=== PATIENT | male | born 2000 | race Caucasian/White ===

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

== ENCOUNTER → 2021-03-21 08:36 | Outpatient (CLI) | payer OTHER, SELFPAY | PROVIDERS: PCP Internal Medicine Adolescent Medicine; Visit Provider Internal Medicine Adolescent Medicine | DX: R00.2 Palpitations (principal) | CPT/HCPCS: 93225; 93226 ==

== ENCOUNTER 2023-07-23 17:09 | Emergency (ER) | payer BC, SELFPAY ==
[2023-07-23 17:20] VITALS: BP 160/114; PULSE 90; RESP 20; TEMP 36.8; O2SAT 97; BMI 42.5
--- NOTE | 2023-07-23 17:23 | XR_ITS ---
PROCEDURE INFORMATION: Exam: XR Left Tibia and Fibula Exam date and time: 07/23/2023 5:23 PM Age: 23 years old Clinical indication: Pain; Swelling, leg or foot; Lower leg; Left; Additional info: Fall TECHNIQUE: Imaging protocol: Radiologic exam of the left tibia and fibula. Views: 2 views. COMPARISON: CR Ankle L 07/23/2023 5:22 PM FINDINGS: Bones/joints: Osseous structures are intact. No fracture or malalignment. Visualized joint surfaces are preserved. Soft tissues: Unremarkable. IMPRESSION: Negative exam. No acute bony abnormalities.
--- NOTE | 2023-07-23 17:23 | XR_ITS ---
PROCEDURE INFORMATION: Exam: XR Left Ankle Exam date and time: 07/23/2023 5:22 PM Age: 23 years old Clinical indication: Pain; Swelling, leg or foot; Ankle; Left; Additional info: Fall TECHNIQUE: Imaging protocol: Radiologic exam of the left ankle. Views: 3 or more views. COMPARISON: No relevant prior studies available. FINDINGS: Bones/joints: Osseous structures are intact. No fracture or malalignment. Visualized joint surfaces are preserved. Soft tissues: Unremarkable. IMPRESSION: Negative exam. No acute bony abnormalities.
--- NOTE | 2023-07-23 17:23 | XR_ITS ---
PROCEDURE INFORMATION: Exam: XR Left Foot Exam date and time: 07/23/2023 5:30 PM Age: 23 years old Clinical indication: Pain; Swelling, leg or foot; Left; Additional info: Fall TECHNIQUE: Imaging protocol: Radiologic exam of the left foot. Views: 3 or more views. COMPARISON: CR XR TIBIA FIBULA LT 2V 07/23/2023 5:23 PM FINDINGS: Bones/joints: There is contour deformity involving the dorsal aspect of the navicular bone that is likely longstanding and developmental in nature.. No fracture, dislocation or malalignment. Joint surfaces are perserved. Soft tissues: Normal. IMPRESSION: No acute bony abnormalities.
--- NOTE | 2023-07-23 17:29 | EXP.UTC ---
Discharge Plan Disposition Patient Disposition: Home, Self-Care Condition: Good Prescriptions Prescriptions: New ibuprofen [IBU] 800 mg tablet 800 mg PO Q8HP PRN (Reason: Moderate Pain) Qty: 30 0RF Referrals Follow up/Referrals: Provider,Referral, MD [Primary Care Provider] - See instructions Keli Medina DPM [Staff Physician] - See instructions Activity Restrictions/Add. Instructions Additional Instructions/Restrictions: Rest the extremity, apply ice for 15 minutes as tolerated three or four times per day, Wear the freddy wrap for compression, Elevate the extremity as tolerated while you are resting. Take ibuprofen for pain. I sent in a prescription to your pharmacy. Follow up with Dr. Medina (podiatry). I put in a referral but you need to call her office and schedule an appointment. Follow up with your regular doctor. GO TO THE ER FOR ANY WORSENING SYMPTOMS Clinical Impressions Clinical Impression: Left ankle sprain, Sprain of left foot Instructions Patient Instructions: Ankle Sprain, DI for Ankle Sprain, DI for Foot Sprain, How to Apply an Elastic Wrap on Ankle Discharge ED Provider: Armando Golden [facility] General Stated complaint: AO07/21 fall Lt ankle inj Time Seen by Provider: 07/23/23 17:29 History of Present Illness Provider Complaint: He states that he twisted his left foot and ankle on 07/21. Since then he has had left ankle and foot pain, swelling and bruising. Related Data Previous Rx's Medication Instructions Recorded ibuprofen 800 mg tablet (IBU) 800 mg PO Q8HP PRN Moderate Pain 07/23/23 #30 tabs Allergies Allergy/AdvReac Type Severity Reaction Status Date / Time ephedrine Allergy Verified 09/03/22 11:18 [facility] Disclaimer: The information contained in this section may have been updated after the patient was seen, as this information can be updated by other users. Medical History (Updated 07/23/23 @ 18:21 by Armando Golden APRN) Vitamin D deficiency (~10/11/17) Social History (Updated 09/03/22 @ 11:19 by Mary No MA) Smoking Status: Never smoker alcohol intake: never substance use type: denies use current occupational status: student Travel in the last 8 weeks: Inside the [place] household members: family housing: house ROS Obtained: Yes All systems reviewed & no additional complaints except as documented Constitutional Constitutional: Denies chills and Denies fever(s) Eyes Eyes: Denies eye discharge ENT Ears, Nose, Mouth, and Throat: Denies dizziness, Denies otalgia and Denies sore throat Cardiovascular Cardiovascular: Denies chest pain Respiratory Respiratory: Denies shortness of breath, Denies chest congestion, Denies cough, Denies stridor and Denies wheezing Gastrointestinal Gastrointestingal: Denies nausea or vomiting Musculoskeletal Musculoskeletal: Reports system reviewed and no additional complaints, except as documented and Denies arthralgias Integumentary/Breasts Skin/Breast: Denies rash Neurologic Neurologic: Denies dizziness and Denies paresthesias Allergic/Immunologic Allergic/Immunologic: Denies wheezing Physical Exam General General appearance: alert and in no apparent distress Head Head exam: atraumatic, normocephalic and normal inspection Eye Eye exam: Present normal appearance, PERRL and EOMI ENT ENT exam: Present normal exam, normal oropharynx, mucous membranes moist, TM's normal bilaterally and normal external ear exam Neck Neck exam: Present normal inspection, full ROM and trachea midline; Absent meningismus or lymphadenopathy Chest Chest inspection: Present normal inspection and symmetric chest wall rise; Absent tenderness Respiratory Respiratory exam: Present normal lung sounds bilaterally; Absent respiratory distress Cardiovascular Cardiovascular exam: Present regular rate and normal rhythm; Absent JVD Abdominal Exam Abdominal exam: Present soft and normal bowel sounds; Absent dis
[2023-07-23 18:37] VITALS: BP 160/114; PULSE 90; RESP 20; TEMP 36.8; O2SAT 97
== END 2023-07-23 18:41 | disposition home or self-care (01) ==
PROVIDERS: Emergency Provider Nurse Practitioner Family
DX: S93.402A Sprain of unspecified ligament of left ankle, initial encounter (principal); S93.602A Unspecified sprain of left foot, initial encounter; M25.572 Pain in left ankle and joints of left foot; X50.1XXA Overexertion from prolonged static or awkward postures, initial encounter
CPT/HCPCS: 73590; 73610; 73630; 99204; 99212; G0463

== ENCOUNTER 2023-07-25 16:12 | Outpatient (RCR) | payer BC, SELFPAY | END 2023-07-25 17:00 | disposition home or self-care (01) | LOC: PT 16:12 | PROVIDERS: Visit Provider Podiatrist | DX: M25.572 Pain in left ankle and joints of left foot (principal); S86.312A Strain of muscle(s) and tendon(s) of peroneal muscle group at lower leg level, left leg, initial encounter | CPT/HCPCS: 97760 ==

== ENCOUNTER 2025-06-06 13:20 | Emergency (ER) | payer BC, SELFPAY ==
[2025-06-06 13:24] VITALS: BP 158/88; PULSE 99; RESP 18; TEMP 36.7; O2SAT 100; BMI 38.9
--- OUTSIDE RECORDS SUMMARY | 2025-06-06 13:31 | XMS_ITS | Clinical Summary ---
Author Organization Healthcare Address [address] [place] [address] Care Team Providers Care Configuration Analyst Name Role Phone Armando Adams MD Primary Care Provider [phone] Family History Medical History Relation Name Comments Bicuspid aortic valve Father Conversions - Other Father SNADY on C PAP Relation Name Status Comments Father Social History Tobacco Use Types Packs/Day Years Used Date Smoking Tobacco: Never Sex and Gender Information Value Date Recorded Sex Assigned at Not on file Legal Sex Male 7:52 PM EDT Gender Identity Not on file Sexual Orientation Not on file Last Filed Vital Signs Vital Sign Reading Time Taken Comments Blood Pressure 148/82 06/06/2019 10:49 AM EDT Pulse 80 06/06/2019 10:49 AM EDT Temperature - - Respiratory Rate - - Oxygen Saturation - - Inhaled Oxygen Concentration - - Weight 148 kg (325 lb 13.4 oz) 06/06/2019 10:49 AM EDT Height 190.5 cm (6' 3 ) 06/06/2019 10:49 AM EDT Body Mass Index 40.73 06/06/2019 10:49 AM EDT Plan of Treatment Not on file Care Teams Configuration Analyst Relationship Specialty Start Date End Date Armando Adams MD [address] [place] [address] PCP - General 01/16/21
--- OUTSIDE RECORDS SUMMARY | 2025-06-06 13:31 | XMS_ITS | Clinical Summary ---
Author Organization [facility] Address [address] [place] [id number] Care Team Providers Care Biology Tutor Name Role Phone Chicho Mercedes M.D. Primary Care Provider [phone] 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 Family History Medical History Relation Name Comments Childhood Heart Disease Father tri valve is a bi High Cholesterol Mother Coronary Artery Disease Paternal Grandfather Diabetes Mellitus Paternal Grandfather High Cholesterol Paternal Grandfather Arrhythmia Neg Hx Childhood heart surgery Neg Hx Heart Attack Neg Hx Hypertension Neg Hx ICD (Defibrillator) Neg Hx Pacemaker Neg Hx Sudden Neg Hx Syncope Neg Hx Relation Name Status Comments Brother 1 Alive Brother 2 Alive Father Alive Mother Alive Paternal Grandfather Social History Tobacco Use Types Packs/Day Years Used Date Smoking Tobacco: Never Smokeless Tobacco: Never Alcohol Use Standard Drinks/Week Comments No 0 (1 standard drink = 0.6 oz pur e alcohol) Intimate Partner Violence Answer Date R ecorded If you are in a relationship , do you feel safe in that relationship? Yes 07/12/2016 Safe in relationship? (18 and older) Not on file 07/12/2016 Safety and Environment Answer Date Mynor rded Do you have any concerns of physical abuse, sexual abuse, or neglect of your child? No 07/12/2016 Adult hurting you or family (11-18) Not on file 07/12/2016 Someone touched you in a sexual way? (11-18) Not on file 07/12/2016 Someone hurting you or family (18 and older) Not on file 07/12/2016 Historical abuse worry Not on file 6 If you have firearms in the home, are they all in locked storage AND unloaded? Not on file 07/12/2016 Sex and Gender Information Value Date Recorded Sex Assigned at Not on file Legal Sex Male 1:00 PM EDT Gender Identity Not on file Sexual Orientation Not on file Last Filed Vital Signs Vital Sign Reading Time Taken Comments Blood Pressure 118/76 07/12/2016 1:38 PM EST Pulse 68 07/12/2016 1:38 PM EST Temperature 37.1 C (98.8 F) 06/26/2015 6:00 PM EDT Respiratory Rate 16 07/12/2016 1:38 PM EST Oxygen Saturation 99% 06/26/2015 7:45 PM EDT Inhaled Oxygen Concentration - - Weight 123.6 kg (272 lb 7.8 oz) 07/12/2016 1:38 PM EST Height 187.5 cm (6' 1.82 ) 07/12/2016 1:38 PM ES T Body Mass Index 35.16 07/12/2016 1:38 PM EST Plan of Treatment Health Maintenance Due Date Last Done Comments MMR IMMUNIZATION (1 of 1 - S tandard series) 2002 DTAP/Tdap/Td IMMUNIZATION (1 - Tdap) 2008 VARICELLA IMMUNIZATION (1 of 2 - 13+ 2-dose series) 2014 HPV IMMUNIZATION (1 - Male 3 -dose series) 2016 HEPATITIS B IMMUNIZATION (1 of 3 - 19+ 3-dose series) 2020 AMB SEASONAL FLU VACCINE (#1) 05/06/2025 COVID-19 Vaccine (1 - 2023-2 5 season) 2025 HIB IMMUNIZATION Aged Out No longer e ligible based on patient's age to complete this topic IPV IMMUNIZATION Aged Out No longer e ligible based on patient's age to complete this topic MCV4 IMMUNIZATION Aged Out No longer eligible based on patient's age to complete this topic MENINGOCOCCAL B VACCINE Aged Out No l onger eligible based on patient's age to complete this topic PNEUMOCOCCAL IMMUNIZATION Aged Out No longer eligible based on patient's age to complete this topic Respiratory Syncytial Virus (RSV) <20mo Aged Out No longer eligible b ased on patient's age to complete this topic Insurance [facility] Care Teams Biology Tutor Relationship Specialty Start Date End Date Chicho Mercedes M.D. [address] [place] [id number] PCP - General External Pediatrics 05/20/15
--- NOTE | 2025-06-06 14:13 | HMH.EDGENADL ---
Discharge Plan Disposition Patient Disposition: Home, Self-Care Condition: Good Prescriptions Prescriptions: No Action azithromycin [Zithromax Z-Doyle] 250 mg tablet See Rx Instructions PO .COMPLEX Qty: 6 0RF Rx Instructions: For 250 mg dose pack: take 500 mg today (day 1), then 250 mg for 4 days (days 2-5) PO methylprednisolone 4 mg tablets,dose pack See Rx Instructions PO PER PKG DIR Qty: 21 0RF Rx Instructions: PO PER PKG DIR guaifenesin 600 mg tablet extended release 12hr 600 mg PO BID Qty: 14 0RF Referrals Follow up/Referrals: Provider,Referral, MD [Primary Care Provider, Medical] - See instructions Activity Restrictions/Add. Instructions Additional Instructions/Restrictions: Change your dressings daily. Use the bacitracin daily to prevent infection. Do not submerge your stitches underneath water. It is okay to shower and wash with warm soap and water. I want you to return in 7 to 10 days to have the stitches removed. This can be done in the ER, at a primary care doctor office, or at an urgent care. If you develop pus draining from the wound or streaking redness please return to the emergency department. Clinical Impressions Clinical Impression: Laceration, Avulsion of skin Instructions Patient Instructions: DI for Laceration Repair Print Language Print Language: Hungarian Discharge ED Provider: Andrei Ladd Adult HPI <Keya Kevin (ED), [employer] - Last Filed: 06/06/25 14:14> General Chief complaint: Wound/Laceration Stated complaint: AO 1300 laceration to thumb left hand Time Seen by Provider: 06/06/25 14:04 Mode of Arrival: Ambulatory Source of Information: Patient Description of Symptoms (Recalled from ER Triage Doc. by RN): patient presents to the ED after smaching his finger with a hammer. tara stated he has not had any recent tetanus. Related Data Previous Rx's ?Medication ?Instructions ?Recorded azithromycin 250 mg tablet See Rx Instructions PO .COMPLEX #6 03/16/24 (Zithromax Z-Doyle) tabs guaifenesin 600 mg tablet, 600 mg PO BID #14 tabs 03/16/24 extended release 12 hr methylprednisolone 4 mg tablets in See Rx Instructions PO PER PKG DIR 03/16/24 a dose pack #21 tabs Allergies Allergy/AdvReac Type Severity Reaction Status Date / Time ephedrine Allergy Verified 03/16/24 11:05 <Andrei Ladd DO - Last Filed: 06/06/25 16:47> History of Present Illness HPI narrative: This is a 25-year-old male patient who is presenting to the emergency department today for evaluation of a left thumb laceration. Patient states that he was resting his thumb against a piece of metal while hammering a nail. He accidentally hammered his thumb into the piece of metal. He suffered a laceration in his head pain in the thumb since that time. He notes some difficulty with flexion of the thumb secondary to pain. He has not had any numbness or tingling [facility] <Keya Kevin (ED), [employer] - Last Filed: 06/06/25 14:14> [facility] Disclaimer: The information contained in this section may have been updated after the patient was seen, as this information can be updated by other users. Medical History Polyuria Viral wart on finger Mesenteric panniculitis Strain of left peroneal muscle or tendon Sprain of deltoid ligament of left ankle Left ankle injury Obesity, Class II, BMI 35-39.9 Vitamin D deficiency (~10/11/17) Surgical History No significant past surgical history Family History Other No significant family history Social History Smoking Status: Never smoker alcohol intake: never substance use type: denies use current occupational status: student Travel in the last 8 weeks?: Inside the [facility] ([place]) household members: family housing: house Have you lived/traveled outside US in past 30 days?: No Contact w/someone who lives/traveled outside US past 30 days?: No Exposure to someone with infectious disease in past 14 days?: No Do you have a fever (greater than 100.4 F or 38 C)?: No Have you tested positive for COVID-19?: No Exposed to someone with COVID-19 in past 14 days?: No Do you have a sore throat?: No Do you have a cough?: No Do you have any weakness?: No Do you have any diarrhea?: No Are you experiencing any unusual bleeding?: No Do you have any muscle aches/pain?: No Do you have any abdominal pain?: No Are you experiencing loss of taste or smell?: No Other Medical History Have you received the Flu Vaccine for this season: No Have you received the Pneumonia Vaccine: No <Andrei Ladd DO - Last Filed: 06/06/25 16:47> ROS Obtained: Yes Systems reviewed as appropriate & no additional complaints except as documented Physical Exam <Andrei Ladd DO - Last Filed: 06/06/25 16:47> General General appearance: other (See MDM) Respiratory Respiratory exam: Present other (See MDM) Cardiovascular Cardiovascular exam: Present other (See MDM) Neurological Exam Neurological exam: Present other (See MDM) Medical Decision Making <Keya Kevin (ED), [employer] - Last Filed: 06/06/25 14:14> Medical Records Screening: Per USPSTF and CDC recommendations, given the prevalence of disease in our region, it is our hospital?s policy to screen for HIV and viral Hepatitis for all patients aged 18 and over and those with ongoing risk factors. Vital Signs: 06/06/25 13:24 06/06/25 15:39 06/06/25 16:02 Temperature 98.0 F 98.0 F 98.0 F Temperature Source Oral Oral Oral Pulse Rate 83 83 Pulse Rate [Right Radial] 99 H Respiratory Rate 18 15 18 Blood Pressure 143/89 H 141/86 H Blood Pressure [Right Arm] 158/88 H Blood Pressure Mean [Right Arm] 111 Blood Pressure Source Automatic Cuff Automatic Cuff Blood Pressure Source [Right Arm] Automatic Cuff Blood Pressure Position Sitting Sitting Blood Pressure Position [Right Arm] Sitting 02 Sat by Pulse Oximetry 100 100 Oxygen Delivery Method Room Air Room Air Room Air Orders (Tests/Meds): ED MEDICATIONS Generic Name Dose Route Start Last Admin Trade Name Freq PRN Reason Stop Dose Admin Tetanus/Reduced Diphtheria/Acell Pertussis 0.5 ml 06/06/25 16:43 Tet/Diphth/Pert-Adult 0.5ml Syringe IM 06/06/25 16:44 .ONCE ONE Discontinued Medications Generic Name Dose Route Start Last Admin Trade Name Freq PRN Reason Stop Dose Admin Bacitracin 1 gm 06/06/25 15:56 06/06/25 16:00 Bacitracin Zinc Oint 30gm Tube TP 06/06/25 15:57 1 gm ONCE ONE Administration Lidocaine HCl 10 ml 06/06/25 15:06 06/06/25 15:22 Lidocaine 1% 10ml Mdv SUBCUT 06/06/25 15:07 10 ml ONCE ONE Administration ORDERS Category Date Time Status Hand XR left minimum 3 views [XR hand LT min 3V] Stat Exams 06/06/25 14:17 Completed <Andrei Ladd, - Last Filed: 06/06/25 16:47> Medical Records Medical records reviewed: Yes I reviewed the patient's medical records. Mikhail Inquiry Pt receiving controlled substance: No Mikhail was queried for this patient: No Vital Signs: 06/06/25 13:24 06/06/25 15:39 06/06/25 16:02 Temperature 98.0 F 98.0 F 98.0 F Temperature Source Oral Oral Oral Pulse Rate 83 83 Pulse Rate [Right Radial] 99 H Respiratory Rate 18 15 18 Blood Pressure 143/89 H 141/86 H Blood Pressure [Right Arm] 158/88 H Blood Pressure Mean [Right Arm] 111 Blood Pressure Source Automatic Cuff Automatic Cuff Blood Pressure Source [Right Arm] Automatic Cuff Blood Pressure Position Sitting Sitting Blood Pressure Position [Right Arm] Sitting 02 Sat by Pulse Oximetry 100 100 Oxygen Delivery Method Room Air Room Air Room Air Orders (Tests/Meds): ED MEDICATIONS Generic Name Dose Route Start Last Admin Trade Name Freq PRN Reason Stop Dose Admin Tetanus/Reduced Diphtheria/Acell Pertussis 0.5 ml 06/06/25 16:43 Tet/Diphth/Pert-Adult 0.5ml Syringe IM 06/06/25 16:44 .ONCE ONE Discontinued Medications Generic Name Dose Route Start Last Admin Trade Name Freq PRN Reason Stop Dose Admin Bacitracin 1 gm 06/06/25 15:56 06/06/25 16:00 Bacitracin Zinc Oint 30gm Tube TP 06/06/25 15:57 1 gm ONCE ONE Administration Lidocaine HCl 10 ml 06/06/25 15:06 06/06/25 15:22 Lidocaine 1% 10ml Mdv SUBCUT 06/06/25 15:07 10 ml ONCE ONE Administration ORDERS Category Date Time Status Hand XR left minimum 3 views [XR hand LT min 3V] Stat Exams 06/06/25 14:17 Completed Medical Decision Narrative: In summary, this is a 25-year-old male patient who is presenting to the emergency department today for evaluation of a left thumb laceration. Patient does not have any comorbidities that would complicate his medical management or care. On initial evaluation of the patient they were resting comfortably in no acute distress and nontoxic in appearance. They are hemodynamically stable, saturating well room air, and are neurologically intact. On physical examination of the left hand there is a 4 cm laceration along the lateral aspect of the left thumb. There is no bone exposure. He has distal sensation that is intact. Wound is hemostatic. Motor function of the thumb is intact, but is limited secondary to pain. Differential diagnosis includes retained foreign body, bony fracture, laceration, among others. Workup was initiated with x-rays of the left hand. No labs were indicated for this workup. X-ray was personally interpreted by me and demonstrates no acute bony fracture or foreign body retention. Official radiology read is in agreement and states there is no acute abnormalities. I performed a digital block of the left thumb. Laceration was repaired with 4-0 nylon sutures. 7 sutures were placed in total. The wound was thoroughly irrigated and was cleaned copiously with chlorhexidine. Patient tolerated this procedure well. Please see procedure note for details. We have administered a Tdap vaccination to the patient as it has been greater than 5 years since his last Tdap vaccination. The wound was dressed with bacitracin and nonstick dressings. Patient has been instructed to change these dressings daily and apply bacitracin daily. Return precautions have been given. At this time all questions have and answered and all parties are agreeable with the decision to discharge home Procedures <Andrei Ladd DO - Last Filed: 06/06/25 16:47> Laceration Laceration 1: Site: thumb (Left) Side (If applicable): left Size (cm): 4 Description: linear Depth: simple, single layer Local Anesthetic: other anesthetic (Digital nerve block, please see procedure note for details) Pre-repair: wound explored, irrigated extensively and deep structures intact Skin layer closed with: nylon Size (cm): 4-0 Number of sutures: 7 Technique: simple, interrupted Nerve Block Nerve Block 1: Time out performed: Yes Local Anesthetic: lidocaine 1% Amount of anesthesia used (mL): 4 Side: Left Nerve Blocks: digital (left thumb) Procedure Successful: Yes Patient Tolerated Procedure: well Complications: none Critical Care <Andrei Ladd, - Last Filed: 06/06/25 16:47> Critical Care Time Critical Care Time: No
--- NOTE | 2025-06-06 14:17 | XR_ITS ---
FINAL REPORT CLINICAL HISTORY: Left thumb laceration COMPARISON: None FINDINGS: LEFT HAND Three views demonstrate no acute fracture or dislocation. The visualized joint spaces are normally aligned. The soft tissues are unremarkable. No radiopaque foreign body identified. IMPRESSION: No acute process. Reviewed, Interpreted and Dictated by Chu Lagos MD Transcribed by Lashae Jo Authenticated and [facility]
[2025-06-06] MEDS: LIDOCAINE 1% 10ML MDV 10 ML SUBCUT (15:22)
[2025-06-06 15:39] VITALS: BP 143/89; PULSE 83; RESP 15; TEMP 36.7; O2SAT 100
[2025-06-06] MEDS: BACITRACIN ZINC OINT 30GM TUBE TP (16:00)
[2025-06-06 16:02] VITALS: BP 141/86; PULSE 83; RESP 18; TEMP 36.7; O2SAT 100
[2025-06-06] MEDS: TET/DIPHTH/PERT-ADULT 0.5ML SYRINGE 0.5 ML IM (16:47)
== END 2025-06-06 16:52 | disposition home or self-care (01) ==
PROVIDERS: Emergency Provider Student in an Organized Health Care Education/Training Program
DX: S61.012A Laceration without foreign body of left thumb without damage to nail, initial encounter (principal); W27.0XXA Contact with workbench tool, initial encounter
CPT/HCPCS: 12002; 73130; 90471; 90715; 99283; 99284; J2003